=== PATIENT | female | born 1985 | race Caucasian/White ===

== ENCOUNTER 2018-03-02 22:15 | Observation (INO) ==
[2018-03-02 22:54] LABS: Amphetamine Screen,Urine Negative ng/mL (Cutoff=1000); Barbiturate Screen,Urine Negative ng/mL (Cutoff=200); Benzodiazepines Screen,Urine Negative ng/mL (Cutoff=200); Cannabinoid Screen,Urine Negative ng/mL (Cutoff = 50); Cocaine Screen,Urine Negative ng/mL (Cutoff= 300); Opiate Screen,Urine Negative ng/mL (Cutoff=300); Phencyclidine Screen,Urine Negative ng/mL (Cutoff=25)
--- NOTE | 2018-03-02 23:09 | Discharge Summary ---
Date of Encounter: 03/02/18 Time of Encounter: 23:08 - Discharge Diagnosis (1) 37 weeks gestation of Priority: Primary Status: Acute Comments: admitted for observation (2) NST (non-stress test) reactive on surveillance Priority: Secondary Status: Acute Comments: baseline 130 bpm moderate variability +15x15 accels no decels noted. CAt. 1 tracing - Discharge Medications Home Medications: Sulfamethoxazole/Trimeth DS [Bactrim DS] 1 each PO BID #20 tablet 06/17/17 [Rx] Allergies/Adverse Reactions: 3 Allergy/AdvReac Type Severity Reaction Status Date / Time No Known Allergies Allergy Verified 09/10/15 15:20 Data Procedures and tests throughout hospitalization: Laboratory Tests 03/02/18 22:20 Urine Opiates Screen Negative Ur Barbiturates Screen Negative Ur Phencyclidine Scrn Negative Ur Amphetamines Screen Negative U Benzodiazepines Scrn Negative Urine Cocaine Screen Negative U Marijuana (THC) Screen Negative Labs on day of discharge: Labs from last 24 hours 03/02/18 22:20 Urine Opiates Screen Negative Ur Barbiturates Screen Negative Ur Phencyclidine Scrn Negative Ur Amphetamines Screen Negative U Benzodiazepines Scrn Negative Urine Cocaine Screen Negative U Marijuana (THC) Screen Negative Date of admission: 03/02/18 22:15 Discharging clinician: Mary Melchor Anticipated date of discharge: 03/02/18 - Patient Status Disposition: Home, Self-Care Condition: Good Functional capacity at discharge: independent ambulation - Discharge Instructions Follow Up With: Jordan Burch DO [Partnered Physician] - - Diet and Activity Activity: increase activity as tolerated Diet: regular diet Hospital Course RELIGION DEPARTMENT CHAIR Hospital course: Patient is a 32 y/o at 37w5d presents to labor and delivery with complaints of rectal pressure and feeling dizzy off and on earlier to day. Patient reports +FM, denies LOF or VB. Patient reports +BM daily. Patient denies headaches or urinary symptoms. Time Attestation: Total time spent providing and/or coordinating discharge services: Time Spent: Less than 30 minutes Exam - Constitutional General appearance IM: A&O X 3, answers questions appropriately - Other Additional findings: SVE per 1/thick/-2 per RN on admission - VTE Reasons for not Prescribing Prophylaxis: Treatment not Indicated - Low risk for VTE
== END 2018-03-02 23:22 | disposition home or self-care (01) ==
LOC: 1NENULAB
PROVIDERS: ADMIT Advanced Practice Midwife; ATTEND Advanced Practice Midwife

== ENCOUNTER 2018-03-12 05:50 | Inpatient (IN) ==
[2018-03-12] MEDS ORDERED: Metoclopramide 10 MG/2 ML VIAL IVP PRN ×2 (06:01→12:08)
[2018-03-12] MEDS ORDERED: CeFAZolin Premix DUPLEX 2,000 MG/50 ML BAG IVPB ONE (06:01)
[2018-03-12] MEDS ORDERED: Ondansetron 4 MG/2 ML VIAL IVP PRN ×2 (06:01→12:08)
[2018-03-12] MEDS ORDERED: Famotidine 20 MG/2 ML VIAL IVP PRN (06:01)
[2018-03-12] MEDS ORDERED: Ringers Solution, Lactated 1,000 ML IVC ONE (06:01)
[2018-03-12] MEDS ORDERED: Naloxone 0.4 MG/ML INJ IVP PRN ×2 (06:01→12:08)
[2018-03-12] MEDS ORDERED: Ringers Solution, Lactated 1,000 ML IVC SCH ×2 (06:15→12:08)
[2018-03-12 06:51] LABS: Basophils % 0.3 %; Eosinophils # 0.1 K/mcL (0.0-0.6); Eosinophils % 0.6 %; Hematocrit 34.7 % (35.3-44.9); Hemoglobin 11.9 g/dL (11.5-15.4); Immature Granulocytes % 0.6 % (0-4); Lymphocytes # 2.5 K/mcL (0.6-4.6); Lymphocytes % 20.6 %; Mean Corpuscular HGB Conc 34.3 g/dL (31.6-35.5); Mean Corpuscular Hemoglobin 29.6 pg (28.0-33.3); Mean Corpuscular Volume 86.3 fL (83.0-100.0); Mean Platelet Volume 10.5 fL (9.4-12.4); Monocytes # 0.9 K/mcL (0.0-1.3); Monocytes % 7.6 %; Neutrophils # 8.4 K/mcL (1.6-8.9); Nucleated Red Blood Cells 0.2 /100 WBC (0); Platelet Count 225 K/mcL (140-400); Red Blood Count 4.02 M/mcL (3.82-4.97); Red Cell Distribution Width 13.3 % (11.5-14.5); Segmented Neutrophils % 70.3 %
[2018-03-12 06:56] LABS: Amphetamine Screen,Urine Negative ng/mL (Cutoff=1000); Barbiturate Screen,Urine Negative ng/mL (Cutoff=200); Benzodiazepines Screen,Urine Negative ng/mL (Cutoff=200); Cannabinoid Screen,Urine Negative ng/mL (Cutoff = 50); Cocaine Screen,Urine Negative ng/mL (Cutoff= 300); Opiate Screen,Urine Negative ng/mL (Cutoff=300); Phencyclidine Screen,Urine Negative ng/mL (Cutoff=25)
--- NOTE | 2018-03-12 07:21 | OB/GYN History & Physical ---
Date of Encounter: 03/12/18 Time of Encounter: 07:15 Assessment and Plan (1) and not yet delivered in third trimester Current visit: Yes Status: Acute (2) 39 weeks gestation of Current visit: Yes Status: Acute (3) Previous section complicating Current visit: Yes Status: Acute Patient will be prepped for a repeat low transverse section with bilateral partial salpingectomy (4) Family planning advice Current visit: Yes Status: Acute (5) Hepatitis C Current visit: Yes Status: Acute Qualifiers: Viral hepatitis chronicity: carrier Qualified Code(s): B18.2 - Chronic viral hepatitis C History of Present Illness HPI: Ms. Medley is a 32 year old female 6 para 5 and 39-0/7 weeks who presented for repeat low transverse section with bilateral partial salpingectomy. Patient has a history of previous section. She was informed that we would need to repeat a on her and she was wanting a tubal ligation same time care has been relatively unremarkable patient' s last ultrasound at the beginning of February did show polyhydramnios. Patient does have a past history of IV drug abuse is on no medications at this time for that and does of a history of hepatitis C. GBS is negative she is Rh+ rubella negative Varicella negative. Past Med Surg Social Fam HX - Past Medical History Medical history: other (Hepatitis C) Psychiatric history: no psych history - Past Surgical History Surgical History: , other (Right breast biopsy, umbilical hernia repair ) Additional surgical history: C/S, hernia repair 2015 - Social History Smoking Status: Current every day smoker Smokeless Tobacco Status: No Alcohol use: none Drug use: none - Family History Mother Living Status: Still Living Hx Family Cardiac Disorders: Yes (CABG X2) Hx Family Respiratory Disorders: No Hx Family Cancer: No Hx Family GI Disorders: No Hx Family Endocrine Disorder: No Hx Family Neuromuscular Disorders: No Hx Family Neurologic Disorders: No Hx Family HEENT Disorders: No Hx Family Autoimmune Disorders: No Obstetrical History - Pregnancies : 6 Para: 5 Livin Medications and Allergies Tablet 1 tab PO DAILY 03/03/18 [History] 3 Allergy/AdvReac Type Severity Reaction Status Date / Time No Known Allergies Allergy Verified 03/03/18 00:45 Review of System OB All systems PM: reviewed and no additional remarkable complaints except as stated Exam - Constitutional Constitutional: well developed, well nourished, no acute distress, average body habitus - HEENT HEENT: EOMI, PERRL, Mucus Membranes Moist - Neck Neck exam: full ROM - Lungs Respiratory exam: CTAB - Cardiovascular Cardiovascular exam: RRR - Abdomen Abdomen: Present: bowel sounds normal, gravid - Cervix Dilation: 0 Effacement: 50 Station: -3 ( heart tones 140s reactive occasional contractions seen) Results Result Diagrams: 03/12/18 06:04 Abnormal lab results WBC 11.9 K/mcL (4.3-11.1) H 03/12/18 06:04 Hct 34.7 % (35.3-44.9) L 03/12/18 06:04 Nucleated RBCs/100 WBC 0.2 /100 WBC (0) H 03/12/18 06:04 All other labs normal.
[2018-03-12] MEDS ORDERED: Oxytocin 20 units/ LR 1000 mL 40 UNIT/2,000 ML BAG IVC ONE (07:37)
--- NOTE | 2018-03-12 07:44 | Anesthesia Evaluation PreOp ---
Date of Encounter: 03/12/18 Time of Encounter: 07:35 - Past History Planned Operation: repeat c section Cardiac History: Denies any Significant Hx Pulmonary History: Smoker (1/2 ppd for 19 years.) ELECTRICIAN REFINERY History: Denies Any Significant HX Other Medical History: Other (positive Hep C from former IV drug use in 2008. Denies any drug use since then.) Anesthesia History: No Prior Anesthetic Complications, Past Anesthesia ( umbilical hernia repair, previous c sections. No problems with anesthesia. No FHAP.) : Yes Alcohol Use: none Drug use: none Medications and Allergies Tablet 1 tab PO DAILY 03/03/18 [History] 3 Allergy/AdvReac Type Severity Reaction Status Date / Time No Known Allergies Allergy Verified 03/03/18 00:45 - Meds/Allergy Pre-op Review Medications Reviewed: Yes Allergies Reviewed: Yes Beta Blockers on Current Med List: No Anesthesia Results - Labs 03/12/18 06:04 Anesthesia Exam VSS and FHTs stable and WNL. Height: 1.6m Weight: 76kg NPO (# of Hours): >8 Pain Scale: 0 Pain Scale Used: Numeric (1 - 10) - HEENT Pupil (Motor): Pupils equal Mallampati: II Teeth: Normal Oral Opening: Greater than 3 - ELECTRICIAN REFINERY LOC: Oriented ELECTRICIAN REFINERY Motor: Normal RUE, Normal LUE, Normal RLE, Normal LLE, Normal Face ELECTRICIAN REFINERY Sensory: Normal: RUE, LUE, RLE, LLE, Face - Cardiac Rhythm: Regular - Pulmonary Breath Sounds: bilateral Clear Respiratory Effort: Symmetrical Anesthesia Assess/Plan ASA Score: 3 Modified Steph Scale for Level of Consciousness: Cooperative, oriented, and tranquil Anesthetic Plan: Regional Monitoring Plan: Standard Monitors Recovery Plan: PACU
[2018-03-12] MEDS ORDERED: EPHEDrine 50 MG/ML VIAL ONE (07:50)
[2018-03-12] MEDS ORDERED: *HR* FentaNYL (PF) 100 MCG/2 ML VIAL ONE (07:50)
[2018-03-12] MEDS ORDERED: Morphine Sulfate/PF 5mg/10mL Vial ONE (07:50)
[2018-03-12] MEDS ORDERED: Water for inj. (sterile) 10 ML IV ONE (07:51)
[2018-03-12] MEDS ORDERED: *HR* Oxytocin 10 UNIT/ML VIAL IM ONE (07:52)
[2018-03-12] MEDS ORDERED: Bupivacaine/PF 0.75% in Dex 2 ML AMPUL INFILT ONE (07:54)
--- NOTE | 2018-03-12 08:02 | OB/GYN Procedure Note ---
Section - Date of procedure: 03/12/18 Preop diagnosis: other (Intrauterine at 39 and 0 since weeks, previous section 1, desires sterilization) Post-op diagnosis: same Procedure: repeat low transverse, bilateral tubal ligation Surgeon: Jordan Burch Quantitated Blood Loss: 500 Was there an insurance account assistant present: No Retail Store Assistant: Carmen Storey Anesthesia Type: Spinal section complications: none Disposition: L&D Recovery Room Specimens: Right tube segment, Left tube segment - (s) Infant A Infant Delivery Date: 03/12/18 Delivery Time: 08:18 Presentation: vertex Position: FLOYD Route of delivery: other ( section) Gender: Male Viability: Viable Pounds: 8 Ounces: 0 Gram Weight: 3.62 kg at 1 minute: 8 at 5 minutes: 9 Shoulder Dystocia: not encountered Specimens collected: cord blood Placenta: spontaneous Cord: 3 umbilical vessels - Narrative Narrative: Patient is a 32-year-old 6 para 5 at 39-0/7 weeks who presented for repeat section with bilateral partial salpingectomy. Patient's has a history of previous section and we did advise that she has to repeat patient wanted a tubal ligation at the same time. The risks and benefits of a tubal ligation was explained to patient with failure rate of 5-8 per thousand with increased risk of ectopic if was to occur. Procedure: Patient was taken to the operating room where spinal anesthesia was found to be adequate. Patient was placed in a dorsal supine position with leftward tilt and prepped and draped in usual fashion. A timeout was undertaken. A Pfannenstiel incision was made with a scalpel removing all scar and the incision was carried down through the underlying tissue to the fascia was of benefit. The fascia was nicked in midline extended laterally with the Reyna scissors. The superior and inferior edges of the fascia were grasped tented up and dissected rectus muscles. Rectus muscles were in the midline parietal peritoneum was identified tented up and entered sharply. This was extended superiorly and inferiorly with Metzenbaums months visit. Bladder blade was inserted the vesicouterine peritoneum was identified tented up and entered sharply. This was extended laterally the lower uterine segment was incised with a scalpel and extended laterally with digital manipulation. Membranes are ruptured large amount clear fluid noted. Infant's head was then throughout the incision followed by the body. Cord was clamped and cut and was being bulb suctioned. was handed off to the waiting pediatric team. Cord blood was collected, placenta was then delivered spontaneously with a three-vessel cord. Uterus was then exteriorized and cleaned of all clots and debris. The lower uterine segment was then closed using an 0 Vicryl in a running locking stitch by to the closure. Good hemostasis is noted. Attention was then turned to the fallopian tubes each tube was grasped at the ampullary region and the distal portion of the tube including the fimbria within removed after that then suture ligated with 0 plain 2. Good hemostasis was noted. The uterus was then returned to the abdomen and gutters were cleaned of all clots and debris and copiously irrigated with no active bleeding noted. The fascia or together using a #1 stratafix in a running stitch and the skin was closed using a 4-0 Vicryl in a subcuticular manner. A PRIMEO dressing was then applied. All needles laps and sponge counts were correct 3 she did receive preoperative antibiotics. Patient was taken to the recovery room where she will be observed for 2 hours before being taken floor.
[2018-03-12] MEDS ORDERED: *HR* Morphine 2 MG/ML SYRINGE IVP PRN (08:38)
[2018-03-12] MEDS ORDERED: Ondansetron 4 MG/2 ML VIAL IVP ONE (08:38)
[2018-03-12] MEDS ORDERED: *HR* HYDROmorphone (PF) 1 MG/ML SYRINGE IVP PRN (08:38)
[2018-03-12] MEDS ORDERED: *HR* Promethazine 25 MG/ML VIAL IVP PRN (08:38)
[2018-03-12] MEDS ORDERED: Acetaminophen IV 1,000 MG/100 ML INFUS..BTL IVPB ONE (08:38)
--- NOTE | 2018-03-12 11:52 | Anesthesia Evaluation Post Op ---
Date of Encounter: 03/12/18 Time of Encounter: 11:51 - Vital Signs Vital Signs: VSS - Lungs Lungs: Clear Ascult./Percussion - Airway Airway: Non-obstructed - Cardiovascular Regular Rate - Mental Status Mental Status: Alert & Oriented, Answers Appropriately - Pain Pain Scale: 3 Pain Scale used: Numeric (1 - 10) - Nausea Vomiting Nausea Vomiting: Not Present - Hydration Hydration: Ice chips, [place] catheter - Discharge PostOp Status: Transfer Patient to floor
[2018-03-12] MEDS ORDERED: Oxytocin 20 units/ LR 1000 mL 20 UNIT/1,000 ML BAG IVC SCH (12:08)
[2018-03-12] MEDS ORDERED: Sennosides 8.6 MG TABLET PO PRN (12:08)
[2018-03-12] MEDS ORDERED: Simethicone 80 MG TAB.CHEW PO PRN (12:08)
[2018-03-12] MEDS ORDERED: *HR* OxyCODONE/APAP 10/325 TABLET PO PRN (12:08)
[2018-03-12] MEDS: Ibuprofen 600 MG TABLET PO PRN (20:56)
[2018-03-12] MEDS: *HR* OxyCODONE/APAP 5/325 TABLET PO PRN (20:57)
[2018-03-13] MEDS: Ibuprofen 600 MG TABLET PO PRN ×3 (04:01→23:38)
[2018-03-13] MEDS: *HR* OxyCODONE/APAP 5/325 TABLET PO PRN ×3 (04:02→17:07)
[2018-03-13 07:16] LABS: Basophils % 0.2 %; Eosinophils # 0.1 K/mcL (0.0-0.6); Eosinophils % 0.8 %; Hematocrit 31.9 % (35.3-44.9); Hemoglobin 10.8 g/dL (11.5-15.4); Immature Granulocytes % 0.5 % (0-4); Lymphocytes # 1.4 K/mcL (0.6-4.6); Lymphocytes % 10.2 %; Mean Corpuscular HGB Conc 33.9 g/dL (31.6-35.5); Mean Corpuscular Hemoglobin 29.8 pg (28.0-33.3); Mean Corpuscular Volume 87.9 fL (83.0-100.0); Mean Platelet Volume 10.6 fL (9.4-12.4); Monocytes # 0.9 K/mcL (0.0-1.3); Monocytes % 6.4 %; Neutrophils # 10.9 K/mcL (1.6-8.9); Platelet Count 196 K/mcL (140-400); Red Blood Count 3.63 M/mcL (3.82-4.97); Red Cell Distribution Width 13.2 % (11.5-14.5); Segmented Neutrophils % 81.9 %
[2018-03-13] MEDS: Prenatal Vit/FA 1 EACH TABLET PO SCH (08:04)
[2018-03-13] MEDS ORDERED: NON-FORMULARY MEDICATION 1 EACH EACH (Prenatal Tablet 1 TAB) PO SCH (09:00)
--- NOTE | 2018-03-13 09:46 | OB/GYN Progress Note ---
Date of Encounter: 03/13/18 Time of Encounter: 09:43 - Assessment and Plan (1) delivery delivered Current Visit: Yes Status: Acute Continue routine PP care consult prn Anticipate discharge tomorrow Subjective - Subjective Interval history: Doing well. Voiding and ambulating without difficulty. Tolerating regular diet. Lochia light and without clots. Dressing remains on incision with drainage marked, no new drainage. Pain well controlled with po pain meds. Infant in arms , states with no problems. Patient reports: appetite normal, voiding normally, pain well controlled, ambulating normally [place]: doing well, nursing well Objective - Vital Signs Latest vital signs: Vital Signs Temp Pulse Pulse Resp BP Pulse Ox 03/13/18 08:00 97.9 F 66 66 16 108/58 97 03/13/18 04:15 97.5 F L 74 16 98/56 98 03/13/18 01:30 97.6 F 64 16 102/62 98 03/12/18 20:44 97.9 F 70 16 114/67 99 03/12/18 16:39 97.6 F 67 15 107/69 96 03/12/18 15:06 97.5 F L 70 16 112/71 03/12/18 13:48 97.8 F 68 18 117/59 98 03/12/18 12:45 97.6 F 66 16 119/64 98 03/12/18 12:15 97.4 F L 63 16 117/59 98 03/12/18 11:45 97.6 F 67 16 121/75 98 Intake and Output 03/12/18 03/13/18 03/13/18 23:59 07:59 15:59 Intake Total 290 / 290 0 / 0 Output Total 250 / 250 1400 / 1400 400 / 400 Balance 40 / 40 -1400 / -1400 -400 / -400 Intake: Oral 290 / 290 0 / 0 Output: Urine 400 / 400 Catheter 250 / 250 1400 / 1400 Other: Meal Dinner Percent of Meal Consumed 60% Stool Characteristics Normal for Patient Weight 70.352 kg Patient Weight 03/13/18 23:59 Weight 70.352 kg - Exam Lungs: bilateral: normal Chest: Normal S1, Normal S2 Extremities: Present: normal Abdomen: Present: normal appearance, soft Incision: Present: normal, dressed Uterus: Present: firm. Absent: tenderness - Labs Labs: Laboratory Results - last 24 hr 03/13/18 07:00 WBC 13.3 H RBC 3.63 L Hgb 10.8 L Hct 31.9 L MCV 87.9 MCH 29.8 MCHC 33.9 RDW 13.2 Plt Count 196 MPV 10.6 Immature Gran % 0.5 Seg Neutrophils % 81.9 Lymphocytes % 10.2 Monocytes % 6.4 Eosinophils % 0.8 Basophils % 0.2 Neutrophils # 10.9 H Lymphocytes # 1.4 Monocytes # 0.9 Eosinophils # 0.1 Basophils # 0.0
[2018-03-14] MEDS: *HR* OxyCODONE/APAP 5/325 TABLET PO PRN (06:11)
[2018-03-14 07:55] VITALS: BP 108/65
[2018-03-14] MEDS: Prenatal Vit/FA 1 EACH TABLET PO SCH (08:04)
[2018-03-14] MEDS: Ibuprofen 600 MG TABLET PO PRN (08:04)
--- NOTE | 2018-03-14 08:52 | Discharge Summary ---
Date of Encounter: 03/14/18 Time of Encounter: 08:46 - Discharge Diagnosis (1) S/P repeat low transverse Priority: Primary Status: Acute Comments: Continue routine care discharge to guest today- 3 day hold follow up with Dr. Burch in 2 weeks (2) Breast feeding status of mother Priority: Secondary Status: Acute Comments: support prn - Discharge Medications Prescriptions: OxyCODONE/APAP 5/325 [Percocet 5/325 MG] 1 each PO Q4HR PRN 30 Days #30 tablet PRN Reason: Mild To Moderate Pain Ibuprofen [Motrin] 600 mg PO Q6HR PRN #60 tablet PRN Reason: Cramping Breast Pump [BREAST PUMP] 1 each .ROUTE AD #1 each Home Medications: Tablet 1 tab PO DAILY 03/03/18 [History] Breast Pump [BREAST PUMP] 1 each .ROUTE AD #1 each 03/14/18 [Rx] Docusate [Colace] 100 mg PO BID capsule 03/14/18 [Rx] Ibuprofen [Motrin] 600 mg PO Q6HR PRN #60 tablet 03/14/18 [Rx] OxyCODONE/APAP 5/325 [Percocet 5/325 MG] 1 each PO Q4HR PRN 30 Days #30 tablet 03/14/18 [Rx] Simethicone [Gas-X] 80 mg PO TID PRN tab.chew 03/14/18 [Rx] Allergies/Adverse Reactions: 3 Allergy/AdvReac Type Severity Reaction Status Date / Time No Known Allergies Allergy Verified 03/03/18 00:45 Data Procedures and tests throughout hospitalization: Laboratory Tests 03/12/18 03/12/18 03/13/18 06:02 06:04 07:00 WBC 11.9 H 13.3 H RBC 4.02 3.63 L Hgb 11.9 10.8 L Hct 34.7 L 31.9 L MCV 86.3 87.9 MCH 29.6 29.8 MCHC 34.3 33.9 RDW 13.3 13.2 Plt Count 225 196 MPV 10.5 10.6 Immature Gran % 0.6 0.5 Seg Neutrophils % 70.3 81.9 Lymphocytes % 20.6 10.2 Monocytes % 7.6 6.4 Eosinophils % 0.6 0.8 Basophils % 0.3 0.2 Neutrophils # 8.4 10.9 H Lymphocytes # 2.5 1.4 Monocytes # 0.9 0.9 Eosinophils # 0.1 0.1 Basophils # 0.0 0.0 Nucleated RBCs/100 WBC 0.2 H Urine Opiates Screen Negative Ur Barbiturates Screen Negative Ur Phencyclidine Scrn Negative Ur Amphetamines Screen Negative U Benzodiazepines Scrn Negative Urine Cocaine Screen Negative U Marijuana (THC) Screen Negative Date of admission: 03/12/18 05:50 Primary care physician: PCP NONE Consults: 03/12/18 12:08 Consult to Scrub Tech (W&C) [CONS] Routine Reason For Exam: Reason for SW Consult: past history IV drug use clean at this time Discharging clinician: Mary Melchor Anticipated date of discharge: 03/14/18 - Patient Status Disposition: Home, Self-Care Condition: Good Functional capacity at discharge: independent ambulation - Discharge Instructions Follow Up With: NONE,PCP [Primary Care Provider] - Jordan Burch DO [Partnered Physician] - - Diet and Activity Activity: increase activity as tolerated Diet: regular diet Hospital Course Procedures: [facility] report reviewed by CHRISSY Price Reason for admission: section Delivery: section Episiotomy: none Laceration: none Other procedures: tubal ligation complications: none Discharge diagnosis: IUP at term delivered [place] baby: male (breast feeding) Time Attestation: Total time spent providing and/or coordinating discharge services: Time Spent: Less than 30 minutes - VTE Documentation of Mechanical Device: Intermittent pneumatic compression device Exam - Constitutional Vitals: Temp Pulse Resp BP Pulse Ox 98.2 F 71 16 108/65 98 03/14/18 07:54 03/14/18 07:54 03/14/18 08:00 03/14/18 07:54 03/14/18 07:54 General appearance IM: A&O X 3, pleasant, answers questions appropriately - Respiratory Respiratory exam: Present: CTAB - Cardiovascular Cardiovascular exam IM: Present: RRR, +S1, +S2 - GI/Abdominal GI/Abdominal exam IM: normal bowel sounds Incision: normal, dry, intact - Uterine Tone: Firm Uterus Position: 2 Fingers Below Umbilicus, Midline - Extremities Exam Extremities exam IM: Present: full ROM, normal capillary refill, normal inspection - Neurological Exam Neurological exam: alert, oriented X3, reflexes normal
== END 2018-03-14 11:26 | disposition home or self-care (01) | DRG 540 ==
LOC: 1NENULAB 05:50 → 1NENUOBS 12:02
PROVIDERS: ADMIT Obstetrics & Gynecology; ATTEND Obstetrics & Gynecology